=== PATIENT | female | born 1940 | race Caucasian/White ===

== ENCOUNTER 2017-10-18 17:32 | Emergency (ER) | payer MEDICARE, BC, SELFPAY ==
[2017-10-18 17:35] VITALS: BP 163/93; PULSE 109; RESP 16; TEMP 36.7; O2SAT 98; BMI 24.3
--- NOTE | 2017-10-18 18:23 | EKG12_ITS ---
Test Reason : [facility] [place] Blood Pressure : / mmHG Vent. Rate : 086 BPM Atrial Rate : 086 BPM P-R Int : 150 ms QRS Dur : 076 ms QT Int : 372 ms P-R-T Axes : 053 019 -53 degrees QTc Int : 445 ms Sinus rhythm with Premature atrial complexes Nonspecific ST and T wave abnormality Abnormal ECG Confirmed by AISLINN TORRES, BRENDA ([id number]), restaurant expeditor ADORE PIMENTEL ([id number] on 10/20/2017 1:28:50 PM Referred By: CULLEN Confirmed By:BRENDA TAO MD
--- NOTE | 2017-10-18 18:23 | CT_ITS ---
STUDY: CT BRAIN WITHOUT CONTRAST REASON FOR EXAM: Female, 77 years old. Confusion and hallucinations RADIATION DOSAGE (If Supplied By Facility): CTDIvol = ( 60.81 ) mGy, DLP = ( 1044.28 ) mGycm TECHNIQUE: Transaxial CT imaging of the brain was performed without administration of intravenous contrast material. Individualized dose optimization techniques were used for this CT. COMPARISON: None. FINDINGS: Normal soft tissue structures. Normal calvarium. Calcification of the cavernous carotids. Mild atrophy and periventricular white matter ischemic changes.. Normal basal ganglia and thalami. Normal brainstem. Normal cerebellum. Empty sella deformity of uncertain clinical significance. There is no intracranial hemorrhage. There are no findings of an acute ischemic infarction. Normal visualized paranasal sinuses. CT/Brain/Head without Contrast IMPRESSION: Mild atrophy and periventricular white matter ischemic change. No evidence for acute bleed. If concern for acute infarct MRI recommended Electronically Signed: Hood Rothman MD at 19:17 EDT , Service support ,
--- NOTE | 2017-10-18 18:35 | ED.RN ---
NO OLD EKGS IN MUSE.
[2017-10-18 18:45] LABS: Mucous, Urine 0 SEEN /hpf (<or=2+); Red Blood Cells-Urine 0 SEEN /hpf (0-5)
[2017-10-18 19:10] LABS: Absolute Lymphocyte Count 1.36 X10^3/ul (0.83-4.51); Absolute Neutrophil Count 3.5 X10^3/uL (2.0-7.7); Basophil# 0.03 X10^3/uL; Basophil% 0.5 % (0-1); Eosinophils% 1.8 % (0-5); Hematocrit 41.7 % (37-47); Hemoglobin 13.9 g/dl (12.0-15.0); Lymphocyte # 1.36 X10^3/ul (4.0); Lymphocyte % 24.5 % (19-41); Mean Corp Hgb Conc 33.3 g/gl (32-36); Mean Corpuscular Hgb 28.9 pg (27.0-32.0); Mean Corpuscular Volume 86.7 fL (81-99); Mean Platelet Vol. 10.2 fl (6.2-12.0); Monocyte# 0.58 X10^3/uL; Monocyte% 10.5 % (0-10); Neutrophil # 3.48 X10^3/uL (2.7-7.7); Neutrophil % 62.7 % (47-70); Platelet Count 250 K/mm3 (150-450); RBC Distribution Width CV 15.6 % (11.6-14.6); RBC Distribution Width SD 50.1 fl (35.1-43.9); Red Blood Count 4.81 M/mm3 (4.2-5.4); White Blood Count 5.6 K/mm3 (4.4-11.0)
[2017-10-18 19:13] LABS: POSITIVE COUNT NO; POSITIVE DIFFERENTIAL NO; POSITIVE MORPHOLOGY NO
[2017-10-18 19:17] VITALS: RESP 16
[2017-10-18 19:23] LABS: Color, Urine Yellow (Yellow); Glucose, Dipstick Normal (Normal); Ketone-Dipstick 5 mg/dl (Negative); Leukocyte Esterase-Dipstick 500 /ul (Negative); Nitrite-Dipstick Positive (Negative); Occult Blood-Urine 10 /ul (Negative); Protein-Dipstick 15 mg/dl (Negative); Specific Gravity, Urine 1.025 (1.002-1.030); Urine Bilirubin Dipstick Negative (Negative); Urine Clarity Sl. Cloudy (Clear); Urine Urobilinogen Normal (Normal)
[2017-10-18 19:26] LABS: Anion Gap 10 (5-15); BUN 8 mg/dL (7-18); BUN/Creat Ratio 7.6 RATIO (10-20); Chloride 105 mmol/L (98-107); Creatinine, Serum 1.05 mg/dL (0.55-1.02); EST Glomerular Filtration Rate 54 mL/min (>60); Est Glom Filt Rate - Afr Amer 65 mL/min (>60); Estimated Creatinine Clearance 32.23 ml/min; Glucose 110 mg/dL (74-106); Potassium 3.3 mmol/L (3.5-5.1); Sodium Level 141 mmol/L (136-145)
[2017-10-18 19:39] LABS: Bacteria 4+ /hpf (None Seen); Squamous Epithelial Cells - UA 0-5 SEEN /hpf (5-10); Transitional Epithelial - Ur 0-5 SEEN /hpf (0-5); White Blood Cells 10-25 SEEN /hpf (0-5)
[2017-10-18 19:44] LABS: Alcohol, Blood (Medical)-Serum < 3.0 mg/dL
--- NOTE | 2017-10-18 20:02 | ED.RN ---
CALLED [facility] CASE MANAGER STATED SHE WOULD LET [facility] KNOW PT NEEDS TO BE SEEN.
--- NOTE | 2017-10-18 20:04 | ED.RN ---
[facility] RAMIREZ. HE STATED HE WILL BE RIGHT OVER TO SEE PT.
[2017-10-18] MEDS: Ceftriaxone 1 GM/50 ML BAG IV (20:11)
[2017-10-18 20:12] VITALS: BP 157/91; PULSE 85; RESP 17; O2SAT 98
[2017-10-18 20:59] LABS: Amphetamine Urine VISTA NEGATIVE (<1000 ng/mL); Barbiturate Urine VISTA NEGATIVE (< 200 ng/mL); Benzodiazepine Urine VISTA NEGATIVE (< 200 ng/mL); Cocaine Urine VISTA NEGATIVE (< 300 ng/mL); Ecstacy Urine VISTA NEGATIVE (< 500 ng/mL); Methadone Urine VISTA NEGATIVE (< 300 ng/mL); PCP Urine VISTA NEGATIVE (< 25 ng/mL); THC Urine VISTA NEGATIVE (< 50 ng/mL); Vista UDS pH Range 5
--- NOTE | 2017-10-18 21:01 | ED.RN ---
[facility] IS HERE TO SEE PT.
--- NOTE | 2017-10-18 21:46 | ED.VISSUMM ---
- ER Visit Summary Date of Service: 10/18/17 Chief Complaint: Hallucinations History of Present Illness: The patient is a 77 F brought in by family members after she has been telling them of auditory hallucinations for the past couple of months. She says there is a voice that had set a family member was in a psych la and the children were . Family states that she has also commented on flashing lights, that they can see her in her house, and that she is afraid to talk in her house because she does not want them to hear her. Patient denies any visual hallucinations to me. Patient states that she is not sleeping or eating well. Patient denies any pain or shortness of breath. She denies difficulty with sleep. She admits that she does not go to her doctor often. The only medication she takes is Tylenol as needed [id number]. Physical Examination: Blood pressure is 163/93, temperature 98.1, heart rate 109, respiratory rate 16, pulse ox 98% on room air. Head neck examination grossly unremarkable. Heart is regular rate and rhythm. Lung sounds are clear. Abdomen is soft nontender. Neuro exam reveals no focal deficits. Psychiatric examination does confirm auditory hallucinations. Patient denies suicidal ideation. Test Results: EKG is sinus at 86 with 1/[address] depression in the lateral and inferior leads. CBC and chemistry studies are significant for potassium of 3.3. Urinalysis is positive for nitrites with 10-25 white cells and 4+ bacteria. Troponin is negative. TSH is normal. Alcohol and tox are normal. CT head shows mild atrophy and white matter changes. Emergency Department Course and Treatment: Patient was given potassium chloride orally. She is given a dose of IV Rocephin and a urine culture is sent. Pineda from the counseling center presented to evaluate the patient. After much discussion with patient and family members we have agreed to treat the urinary tract infection and Pineda will see her at the counseling center in 2 days for repeat evaluation. Patient's family will keep a close eye on her in the meantime and are all in agreement with this plan. She will be discharged with a prescription for Keflex along with potassium replacement. Treatment Plan: [] Disposition: Discharge Impression: 1. UTI 2. Auditory hallucinations 3. Hypokalemia This note was generated with [employer] software. It may contain incorrect words, spelling, and punctuation that were not noted in review of the chart prior to signing ED Disposition - Plan for ED Patient: Disposition: Home or Assisted Living Chief Complaint: Mental Health Prescriptions: Cephalexin [Keflex] 500 mg PO Q6 #40 capsule Potassium Chloride [K-Dur] 20 meq PO BID #10 tablet Referrals: [facility] [GROUP OF PHYSICIANS] - Keep Caren appointment Calixto Farias DO [Primary Care Provider] -
--- NOTE | 2017-10-18 21:46 | ED.DEP ---
ED Disposition - Plan for ED Patient: Disposition: Home or Assisted Living Chief Complaint: Mental Health Prescriptions: Cephalexin [Keflex] 500 mg PO Q6 #40 capsule Potassium Chloride [K-Dur] 20 meq PO BID #10 tablet Referrals: Calixto Farias DO [Primary Care Provider] - [facility] [GROUP OF PHYSICIANS] - Keep Caren appointment
[2017-10-18 21:56] VITALS: BP 165/86; PULSE 88; RESP 18; O2SAT 97
== END 2017-10-18 22:00 | disposition home or self-care (01) ==
PROVIDERS: Emergency Provider Emergency Medicine; Family Provider Family Medicine; PCP Family Medicine
DX: R44.0 Auditory hallucinations (principal); N39.0 Urinary tract infection, site not specified; E87.6 Hypokalemia
CPT/HCPCS: 70450; 80048; 80307; 80320; 81001; 84443; 84484; 85025; 87077; 87086; 87088; 87186; 93005; 96365; 99284; J7040; G0480